=== PATIENT | male | born 1955 ===

== ENCOUNTER 2023-10-06 09:19 | Outpatient (CLI) | payer MEDICARE, BC, SELFPAY ==
--- NOTE | ~2023-10-06 | MR_ITS ---
MRI of the left knee Clinical history: Osteoarthritis Technique: Coronal proton density and proton density-weighted images, sagittal proton-density and T2 fat-sat images, and axial proton-density fat-saturated images were acquired. Findings: Anterior and posterior cruciate ligaments are intact. Medial collateral ligament and the la teral collateral ligament complex are intact. Popliteus tendon is intact. There is complex tearing of the posterior horn and body of medial meniscus. Additional large radial t ear at the posterior root of the medial meniscus. Articular cartilage in the lateral compartment is well preserved. There is diffuse grade 4 chondral m alacia the medial femoral condyle and medial tibial plateau. There is moderate chondral malacia along the lateral patellar facet and central femoral trochlea. Tricompartmental osteophytes are present. Extensor mechanism is intact. Small to moderate joint effusion present. No Cameron's cyst. Impression: Complex tearing of the posterior horn and body of medial meniscus with additional large radial tear a t the posterior root of the medial meniscus. Tricompartmental osteoarthritis, as detailed above, worst in the medial compartment. Small to moderate joint effusion. Reviewed, dictated and finalized at location . Impression: Complex tearing of the posterior horn and body of medial meniscus with addition al large radial tear at the posterior root of the medial meniscus. Tricompartmental osteoarthritis, as detailed above, worst in the medial compart ment. Small to moderate joint effusion.
== END 2023-10-06 09:20 ==
LOC: MICIMG 09:21
DX: S83.232A Complex tear of medial meniscus, current injury, left knee, initial encounter (principal); M17.12 Unilateral primary osteoarthritis, left knee; M25.462 Effusion, left knee; X58.XXXA Exposure to other specified factors, initial encounter
CPT/HCPCS: 73721

== ENCOUNTER 2024-01-26 10:10 | Outpatient (CLI) | payer MEDICARE, BC, SELFPAY ==
--- NOTE | ~2024-01-26 | MR_ITS ---
EXAMINATION: MR knee RT wo con DATE: 01/26/2024 11:09 INDICATION: Unilateral primary osteoarthritis, right knee. Right knee pain. TECHNIQUE: Magnetic resonance imaging (MRI) of the right knee was performed without intravenous contr ast. Sequences included axial PD-weighted FS FSE, coronal PD-weighted FSE and PD-weighted FS FSE, sag ittal PD-weighted FSE, and sagittal T2-weighted FS FSE. COMPARISON: None. FINDINGS: Medial compartment: There is maceration of the medial meniscus. There is extensive full-thickness cartilage loss of femor al condyle and tibial condyle with cortical remodeling and osteophytes. There is mild subchondral jonathan ma-like marrow signal intensity. Lateral compartment: Lateral meniscus is normal. There is shallow partial-thickness cartilage loss of femoral condyle and tibial condyle. Osteophytes are noted. Patellofemoral compartment: There is partial-thickness cartilage loss of patella including areas of deep partial-thickness cartil age loss of the medial and lateral facets with minimal subchondral edema-like marrow signal intensity . There is partial thickness cartilage loss of trochlea, deep at the central trochlea. Osteophytes ar e noted. Ligaments and tendons: There is a complete tear of anterior cruciate ligament. There is a partial tear of posterior cruciate ligament characterized by thickening and increased signal intensity. There are changes of prior spra ins of medial collateral ligament and fibular collateral ligament characterized by thickening and inc reased signal intensity proximally. There is moderate patellar tendinopathy. Fluid: There is a large knee joint effusion. There is trace fluid in a Cameron's cyst. There is mild prepatell ar and superficial infrapatellar bursitis. IMPRESSION: 1. Severe chondrosis of medial compartment, moderate chondrosis of patellofemoral compartment, and mi ld chondrosis of lateral compartment. 2. Maceration of medial meniscus. 3. Complete tear of anterior cruciate ligament. 4. Partial tear of posterior cruciate ligament. 5. Large knee joint effusion. Reviewed, dictated and finalized at location A. IMPRESSION: 1. Severe chondrosis of medial compartment, moderate chondrosis of patellofemor al compartment, and mild chondrosis of lateral compartment. 2. Maceration of medial meniscus. 3. Complete tear of anterior cruciate ligament. 4. Partial tear of posterior cruciate ligament. 5. Large knee joint effusion.
== END 2024-01-26 10:11 ==
LOC: GOSHIMG 10:12
DX: M17.11 Unilateral primary osteoarthritis, right knee (principal); M94.261 Chondromalacia, right knee; S83.511A Sprain of anterior cruciate ligament of right knee, initial encounter; S83.521A Sprain of posterior cruciate ligament of right knee, initial encounter; M25.461 Effusion, right knee; X58.XXXA Exposure to other specified factors, initial encounter
CPT/HCPCS: 73721